=== PATIENT | male | born 1965 | race Caucasian/White ===

== ENCOUNTER 2017-01-25 12:43 | Day surgery (SDC) | payer MEDICARE, OTHER ==
[~2017-01-25] VITALS: Ht 175.3 cm; Wt 90.2 kg
[~2017-01-25 12:43] MED LIST: ALBU18HF INHALATION; FLUT12HF2 IH; PRED20TA PO
[2017-01-25 14:35] VITALS: Ht 175.3 cm; Wt 90.2 kg
[2017-01-25 15:33] VITALS: BP 127/82; PULSE 77; RESP 16
[2017-01-25] MEDS ORDERED: PROPOFOL 20 ML ONE (16:23)
[2017-01-25] MEDS ORDERED: FENTAnyl 50 MCG/ML VIAL ONE (16:23)
[2017-01-25] MEDS ORDERED: MIDAZOLAM 1 MG/ML 2 ML INJ ONE (16:23)
--- NOTE | 2017-01-25 22:33 | GILP ---
DATE OF PROCEDURE: NAME OF PROCEDURE: Colonoscopy with saline-assisted polypectomy plus endoclip placement and colonos copy with ablation. SURGEON: Leyla Abbasi MD HISTORY AND INDICATIONS: The patient being evaluated for colorectal cancer screening. PREMEDICATION: Monitored anesthesia care by anesthesiologist. INSTRUMENT USED: Olympus colonoscope. PREPARATION: Adequate. TECHNIQUE: After informed consent, with the patient/relatives understanding the procedure, its polly cations potential risks and complications including but not limited to: allergic reaction, bleeding, perforation, infection, missed lesions and after all pertinent questions were answered to the patie nt's satisfaction, the patient/relatives signed the witnessed informed consent. Following this, premedication was administered slowly IV push by under careful cardiovascular and re spiratory monitoring with pulse oximetry, automatic blood pressure and spring machine operator. Once the sedativ e effect was achieved, the patient was placed in the left lateral decubitus position, digital rectal examination was performed. The colonoscope was then introduced and advanced under visual control th roughout all segments of the colon including: the rectum, sigmoid, descending colon, splenic flexure , transverse colon, hepatic flexure, ascending colon and finally reaching the cecum which was clearl y identified by transillumination, finger indentation and the ileocecal valve. Careful examination o f the mucosa of the lower gastrointestinal tract both on insertion as well as withdrawal of the inst rument disclosed the following findings: Rectal Examination: No evidence of perirectal disease, no masses. Colonic Mucosa: The colonic mucosa is remarkable for presence of 4 mm sessile polyp in the rectum w hich was ablated with biopsy forceps. The remainder of colonic mucosa unremarkable until we reached the area of the proximal ascending colon, where a 10 mm sessile polyp was identified in the proxima l ascending colon. The remainder of colonic mucosa unremarkable. The ileocecal valve was clearly i dentified and appears unremarkable. The instrument was withdrawn, re-examining the mucosa in detail . No additional abnormalities are noted. The colonoscope was then brought back to the area of the proximal ascending colon. The polyp was again identified. It was removed with saline-assisted poly pectomy with no evidence of complication. An endoclip was placed to secure smallest closure of the polypectomy site as possible. No evidence of immediate complication is present. The instrument was withdrawn, re-examining the mucosa in detail. No additional ____ abnormalities are noted. The instrument was then withdrawn. The patient tolerated the procedure well and was transferred out of the endoscopy suite awake and in good condition to continue recovery under observation. IMPRESSION: 1. A 10 mm sessile polyp in proximal ascending colon, post saline-assisted polypectomy and recovery plus endoclip placement. 2. A 4 mm sessile polyp in the rectum, ablated. 3. Moderate-sized internal hemorrhoids. PLAN: The patient will be kept on a clear liquid diet today. Pathology will be reviewed as soon as available. Early re-evaluation in 6 months is recommended given the nature of the polyp removed to day. Dictated By: LEYLA VELASCO Conf#: [id number] DID#: [id number]
== END 2017-01-25 18:18 | disposition home or self-care (01) ==
LOC: GIL 12:43
PROVIDERS: ATTEND Internal Medicine Gastroenterology
DX: Z12.11 Encounter for screening for malignant neoplasm of colon (principal); D12.2 Benign neoplasm of ascending colon; D12.7 Benign neoplasm of rectosigmoid junction; K64.8 Other hemorrhoids; J45.909 Unspecified asthma, uncomplicated
CPT/HCPCS: 45380; 88305; J2250; J3010

== ENCOUNTER 2017-09-15 12:25 | Day surgery (SDC) | END 2017-09-15 16:11 | disposition home or self-care (01) ==

== ENCOUNTER 2018-11-13 08:24 | Emergency (ER) | payer OTHER ==
[~2018-11-13] VITALS: Ht 177.8 cm; Wt 90.6 kg
[~2018-11-13 08:24] MED LIST changes: -ALBU18HF INHALATION; +METAMUCIL; -PRED20TA PO
[2018-11-13 08:26] VITALS: Ht 177.8 cm; Wt 90.6 kg
[2018-11-13] MEDS ORDERED: ALBUTEROL 0.083% (NEB) 2.5 MG/3 ML AMP HHN STA ×2 (10:26→11:03)
[2018-11-13] MEDS ORDERED: IPRATROPIUM (NEB) 0.5 MG/2.5 ML AMP HHN ONE ×2 (10:30→11:30)
[2018-11-13] MEDS ORDERED: METHYLPREDNISOLONE 125 MG INJ IM ONE (10:30)
[2018-11-13] MEDS ORDERED: ADV25050 INHALATION (11:55)
[2018-11-13] MEDS ORDERED: ALBU18HF INHALATION (11:55)
[2018-11-13] MEDS ORDERED: PRED20TA PO (11:55)
--- NOTE | 2018-11-13 11:56 | ERD ---
ER Documentation Chief Complaint Chief Complaint asthma attack HPI 53-year-old male presents with wheezing for the last 3 days. He is out of Ventolin inhaler. Is also out of Advair. May have had a recent URI. Denies fevers, chest pain, vomiting or abdominal pain. ROS All systems reviewed and are negative except as per history of present illness. Medications Home Meds Active Scripts Salmeterol Xinaf/Fluticasone* (Advair*) 250-50 Diskus Inhaler, 1 INH INHALATION BID, #1 INHALER Prov:ZAID GONZALEZ MD 11/13/18 Albuterol Sulfate* (Ventolin HFA*) 18 Gm Hfa.aer.ad, 2 PUFF INHALATION Q4H, #1 INHALER Prov:ZAID GONZALEZ MD 11/13/18 Prednisone* (Prednisone*) 20 Mg Tab, 60 MG PO DAILY for 6 Days, #15 TAB 60 mg by mouth for 3 days then 40 mg by mouth for 3 days. Prov:ZAID GONZALEZ MD 11/13/18 Salmeterol Xinaf-Fluticasone* (Advair HFA*) 115/21 Aerosol Inhaler, 2 INH IH BID, #1 INHALER Prov:HENRY DOSS MD 12/15/15 Reported Medications [Metamucil] No Conflict Check 09/15/17 Allergies Allergies: Coded Allergies: No Known Allergy (Unverified , 01/25/17) PMhx/Soc History of Surgery: Yes (VASECTOMY, KNEE SX, SINUX SX) Anesthesia Reaction: No Hx Neurological Disorder: No Hx Respiratory Disorders: Yes (ASTHMA) Hx Cardiac Disorders: No Hx Psychiatric Problems: No Hx Miscellaneous Medical Probl: No Hx Alcohol Use: Yes Hx Substance Use: No Hx Tobacco Use: No FmHx Family History: No diabetes, No coronary disease, No other Physical Exam Vitals Vital Signs Date Temp Pulse Resp B/P (MAP) Pulse Ox O2 O2 Flow FiO2 Time Delivery Rate 11/13/18 89 18 96 21 11:14 11/13/18 82 18 95 21 10:39 11/13/18 97.5 84 24 134/84 95 08:26 (101) Physical Exam Const: No acute distress Head: Atraumatic Eyes: Normal Conjunctiva ENT: Normal External Ears, Nose and Mouth. Neck: Full range of motion. No meningismus. Resp: Clear to auscultation bilaterally. Diffuse wheezing without rales, retractions. Cardio: Regular rate and rhythm, no murmurs Abd: Soft, non tender, non distended. Normal bowel sounds Skin: No petechiae or rashes Back: No midline or flank tenderness Ext: No cyanosis, or edema Neur: Awake and alert Psych: Normal Mood and Affect Results 24 hrs Current Medications Medications Dose Sig/Jerod Start Time Status Last (Trade) Ordered Route PRN Stop Time Admin Dose Reason Admin 125 mg ONCE ONCE 11/13/18 DC 11/13/18 Methylprednis IM 10:30 10:36 olone Sodium 11/13/18 10:31 Succinate (Solu-Medrol) Albuterol 5 mg ONCE STAT 11/13/18 DC 11/13/18 (Proventil HHN 10:26 10:37 0.083% (Neb)) 11/13/18 10:28 Ipratropium 0.5 mg ONCE ONCE 11/13/18 DC 11/13/18 Ione HHN 10:30 10:37 (Atrovent 11/13/18 10:31 0.02% (Neb)) Albuterol 5 mg ONCE STAT 11/13/18 DC 11/13/18 (Proventil HHN 11:03 11:11 0.083% (Neb)) 11/13/18 11:04 Ipratropium 0.5 mg ONCE ONCE 11/13/18 DC 11/13/18 Ione HHN 11:30 11:11 (Atrovent 11/13/18 11:31 0.02% (Neb)) Procedures/MDM Patient presents with signs and symptoms of acute asthma exacerbation without signs of hypoxemia, respiratory stress, signs of pneumonia. He was given Solu- Medrol 125 mg IM, albuterol treatment x2 and had improved breath sounds on seri al exam and felt much better. He has no retractions or rales on serial exam. Patient will be treated with refills of his Advair, albuterol, and a short prednisone taper. The patient was stable with no new complaints during the ER course. Clinically, there is no current evidence to suggest meningitis, sepsis, acute abdomen, pneumonia, stroke, acute coronary syndrome, pulmonary embolism, aortic dissection or any other emergent condition appearing to require further evaluation or hospitalization. Patient counseled regarding my diagnostic impression and care plan. Prior to discharge all questions answered. Pt agrees with treatment plan and understands strict return precautions. Pt is instructed to follow up with primary care provider within 24-48 hours. Precautionary instructions provided including instructions to return to the ER if not improving or for any worsening or changing symptoms or concerns. Departure Diagnosis: Primary Impression: Asthma attack Asthma severity: unspecified severity Asthma persistence: unspecified Qualified Codes: J45.901 - Unspecified asthma with (acute) exacerbation Condition: Stable Patient Instructions: Asthma, Acute (Adult) Referrals: DOCTOR,NOT ON STAFF (PCP) Additional Instructions: Cheque otro vez con mohan doctor primario en el proximo aparicio or regresa para mas o nueva simptomas. ZAID GONZALEZ MD Nov 13, 2018 11:56
[2018-11-13 12:22] VITALS: BP 127/80; PULSE 99; RESP 19
== END 2018-11-13 12:24 | disposition home or self-care (01) ==
LOC: FTE 08:24
DX: J45.901 Unspecified asthma with (acute) exacerbation (principal)
CPT/HCPCS: 94640; 94664; 96372; 99284; J2930